=== PATIENT | male | born 1975 | race African-American/Black ===

== ENCOUNTER 2018-10-02 18:17 | Emergency (ER) | payer OTHER ==
--- NOTE | 2018-10-02 20:03 | RAD ---
AP PELVIS: 10/02/18 HISTORY: Fall. Low back pain in the sacrum. FINDINGS: Dictation cut off POS: [facility]
[2018-10-02] MEDS ORDERED: Ketorolac Tromethamine 60 MG/2 ML VIAL ONE (20:43)
--- NOTE | 2018-10-02 21:13 | RAD ---
LEFT THUMB 3 VIEWS HISTORY: Fall, left thumb pain FINDINGS: No acute fracture or dislocation is seen. Mild degenerative changes are present.
--- NOTE | 2018-10-03 08:53 | RAD ---
AP PELVIS: 10/02/18 HISTORY: Fall and low back pain. Sacrum pain. FINDINGS/IMPRESSION: No acute fracture or dislocation is identified. If there is concern for sacral injury, dedicated sacral radiographs should be obtained. POS: [facility]
== END 2018-10-02 23:28 ==
LOC: ERS 18:17
DX: S30.0XXA Contusion of lower back and pelvis, initial encounter (principal); M79.645 Pain in left finger(s); I10 Essential (primary) hypertension; E78.00 Pure hypercholesterolemia, unspecified; F32.9 Major depressive disorder, single episode, unspecified; F41.9 Anxiety disorder, unspecified; Z79.899 Other long term (current) drug therapy; W17.89XA Other fall from one level to another, initial encounter
CPT/HCPCS: 72170; 96372; J1885